=== PATIENT | female | born 1950 | race African-American/Black ===

== ENCOUNTER → 2016-10-02 | Outpatient (CLI) | payer MEDICARE ==
[~2016-10-02] MED LIST: CYCL-36 PO; TRAM50 PO; VENTAER INH
[2016-10-02 10:14] LABS: ALKALINE PHOSPHATASE 55 U/L (45-117); ALT (GPT) 19 U/L (10-53); ANION GAP 6 MEQ/L (5-15); AST (GOT) 11 U/L (15-37); BICARBONATE 30.5 MEQ/L (21.0-32.0); BLOOD UREA NITROGEN 14 MG/DL (7-18); CHLORIDE 106 MEQ/L (98-107); GLOMERULAR FILTRATION RATE 81 ML/MIN (>89); GLUCOSE,FASTING 118 MG/DL (74-99); HDL CHOLESTEROL 74.4 MG/DL (40.0-60.0); LDL CHOLESTEROL 124 MG/DL (0-99); POTASSIUM 4.1 MEQ/L (3.5-5.1); SODIUM (NA) 142 MEQ/L (136-145); TOTAL BILIRUBIN ADULT 0.5 MG/DL (0.2-1.0)
== END ==
LOC: CLAB 09:20
PROVIDERS: ATTEND Family Medicine
DX: E78.2 Mixed hyperlipidemia (principal)
CPT/HCPCS: 36415; 80053; 80061

== ENCOUNTER → 2017-06-02 | Outpatient (CLI) | payer MEDICARE ==
[2017-06-02 11:23] LABS: ANION GAP 7 MEQ/L (5-15); AST (GOT) 18 U/L (15-37); BLOOD UREA NITROGEN 13 MG/DL (7-18); CHLORIDE 106 MEQ/L (98-107); GLOMERULAR FILTRATION RATE 116 ML/MIN (>89); GLUCOSE,FASTING 119 MG/DL (74-99); POTASSIUM 3.9 MEQ/L (3.5-5.1); SODIUM (NA) 138 MEQ/L (136-145)
[2017-06-02 11:24] LABS: ALT (GPT) 21 U/L (10-53)
[2017-06-02 11:26] LABS: ALKALINE PHOSPHATASE 52 U/L (45-117); HDL CHOLESTEROL 77.6 MG/DL (40.0-60.0); LDL CHOLESTEROL 132 MG/DL (0-99); TOTAL BILIRUBIN ADULT 0.6 MG/DL (0.2-1.0)
[2017-06-02 14:10] LABS: HEMOGLOBIN A1a 0.9 %; HEMOGLOBIN A1b 1.1 %; HEMOGLOBIN Ao 83.6 %; HEMOGLOBIN F 1.2 %; HEMOGLOBIN LA1C 2.2 %; HEMOGLOBIN P3 3.9 %
== END ==
LOC: CLAB 09:49
PROVIDERS: ATTEND Family Medicine
DX: E78.2 Mixed hyperlipidemia (principal); E11.65 Type 2 diabetes mellitus with hyperglycemia
CPT/HCPCS: 36415; 80053; 80061; 83036

== ENCOUNTER → 2017-10-29 | Outpatient (CLI) | payer MEDICARE ==
[2017-10-29 08:58] LABS: ALBUMIN 4.2 GM/DL (3.4-5.0); ALT (GPT) 20 U/L (10-53); AST (GOT) 21 U/L (15-37); BICARBONATE 32.7 MEQ/L (21.0-32.0); BLOOD UREA NITROGEN 17 MG/DL (7-18); CALCIUM 9.1 MG/DL (8.5-10.1); CHLORIDE 103 MEQ/L (98-107); CHOLESTEROL 217 MG/DL (120-200); CREATININE 0.83 MG/DL (0.50-1.00); GLOMERULAR FILTRATION RATE 83 ML/MIN (>89); GLUCOSE,FASTING 115 MG/DL (74-99); SODIUM (NA) 139 MEQ/L (136-145); TRIGLYCERIDES 100 MG/DL (42-150)
[2017-10-29 09:00] LABS: ALKALINE PHOSPHATASE 60 U/L (45-117); CHOLESTEROL/ HDL RATIO 2.55 RATIO; HDL CHOLESTEROL 84.9 MG/DL (40.0-60.0); LDL CHOLESTEROL 112 MG/DL (0-99); TOTAL BILIRUBIN ADULT 1.2 MG/DL (0.2-1.0)
== END ==
LOC: CLAB 08:06
PROVIDERS: ATTEND Family Medicine
DX: E78.2 Mixed hyperlipidemia (principal)
CPT/HCPCS: 36415; 80053; 80061

== ENCOUNTER → 2017-12-14 | Outpatient (CLI) | payer MEDICARE | LOC: HRSP 09:51 | PROVIDERS: ATTEND Internal Medicine | DX: J45.909 Unspecified asthma, uncomplicated (principal) | CPT/HCPCS: 94060; 94618; 94726; 94729; 95012 ==

== ENCOUNTER → 2018-02-15 | Outpatient (CLI) | payer MEDICARE ==
[2018-02-15 11:27] LABS: RHEUMATOID FACTOR SCREEN NEGATIVE (NEGATIVE)
== END ==
LOC: CLAB 10:13
PROVIDERS: ATTEND Family Medicine
DX: M06.9 Rheumatoid arthritis, unspecified (principal)
CPT/HCPCS: 36415; 86038; 86430